=== PATIENT | male | born 1945 | race Caucasian/White ===

== ENCOUNTER 2018-06-08 14:00 | Emergency (ER) | payer OTHER, MEDICARE ==
[~2018-06-08] VITALS: Ht 167.6 cm; Wt 61.8 kg
[2018-06-08] MEDS ORDERED: FLEXERIL PO (15:23)
[2018-06-08] MEDS ORDERED: TORADOL PO (15:23)
[2018-06-08 15:50] VITALS: BP 165/74
== END 2018-06-08 17:22 | disposition home or self-care (01) | DRG 605 ==
LOC: ED 14:00
DX: S00.93XA Contusion of unspecified part of head, initial encounter (principal); S20.212A Contusion of left front wall of thorax, initial encounter; S50.02XA Contusion of left elbow, initial encounter; S16.1XXA Strain of muscle, fascia and tendon at neck level, initial encounter; S50.312A Abrasion of left elbow, initial encounter; V44.5XXA Car driver injured in collision with heavy transport vehicle or bus in traffic accident, initial encounter; W22.11XA Striking against or struck by driver side automobile airbag, initial encounter; Y92.414 Local residential or business street as the place of occurrence of the external cause